=== PATIENT | male | born 1985 | race Caucasian/White ===

== ENCOUNTER 2018-05-26 13:01 | Emergency (ER) | payer SELFPAY ==
[2018-05-26] MEDS ORDERED: predniSONE 10 MG TAB ONE (14:14)
== END 2018-05-26 14:15 | disposition home or self-care (01) ==
LOC: MADERS 13:01
DX: M54.16 Radiculopathy, lumbar region (principal); I10 Essential (primary) hypertension; Z87.891 Personal history of nicotine dependence
CPT/HCPCS: 99283; J7512

== ENCOUNTER 2018-08-30 12:10 | Emergency (ER) | payer SELFPAY | END 2018-08-30 12:50 | disposition home or self-care (01) | LOC: MADERS 12:10 | DX: M54.17 Radiculopathy, lumbosacral region (principal); Z87.891 Personal history of nicotine dependence | CPT/HCPCS: 99283 ==